=== PATIENT | female | born 1955 | race Caucasian/White ===

== ENCOUNTER 2018-08-05 13:52 | Outpatient (CLI) | payer BC ==
--- NOTE | 2018-08-05 16:06 | RAD ---
PA AND LATERAL CHEST: INDICATIONS: History of bronchitis. Rule out pneumonia. COMPARISON: 05/01/2009 FINDINGS: There are bilateral breast implants. The lungs are clear. The cardiomediastinal silhouette is withi n normal limits. No acute osseous abnormality is evident. IMPRESSION: No acute cardiopulmonary abnormality. POS: [facility]
== END 2018-08-05 13:53 | disposition home or self-care (01) ==
LOC: SCSRAD 13:52
PROVIDERS: ATTEND Nurse Practitioner Family
DX: J40 Bronchitis, not specified as acute or chronic (principal)
CPT/HCPCS: 71046

== ENCOUNTER 2018-10-29 10:35 | Outpatient (CLI) | payer MEDICARE, OTHER ==
--- NOTE | 2018-11-08 15:59 | MMO ---
BILATERAL DIGITAL SCREENING MAMMOGRAMS: HISTORY: A 63-year-old female who presents for digital screening mammography. COMPARISON: 01/15/2014. This patient's mammogram is interpreted with the assistance of computer-aided detection. FINDINGS: Bilateral breast augmentation prostheses with calcified outer capsule are noted. Scattered areas of fibroglandular density are noted bilaterally. No direct or indirect evidence of malignancy in either breast. IMPRESSION: BI-RADS CATEGORY 2 BENIGN FINDINGS Bilateral breast augmentation prostheses with calcified outer capsule. No evidence for malignancy. Continued annual followup mammograms. POS: [facility]
== END 2018-10-29 10:36 | disposition home or self-care (01) ==
LOC: SCSMAMMO 10:35
PROVIDERS: ATTEND Family Medicine
DX: Z12.31 Encounter for screening mammogram for malignant neoplasm of breast (principal)
CPT/HCPCS: 77067